=== PATIENT | male | born 1980 | race Caucasian/White ===

== ENCOUNTER 2021-11-12 09:50 | Emergency (ER) | payer OTHER ==
[2021-11-12 11:11] LABS: HEMOGLOBIN 8.9 gm/dl (14.0-17.5); RED BLOOD COUNT 2.99 M/UL (4.20-5.50); WHITE BLOOD COUNT 5.8 K/UL (4.5-11.0)
[2021-11-12 11:41] LABS: BUN/CREATININE RATIO 51 (0-10)
== END 2021-11-12 16:00 | disposition home or self-care (01) ==
LOC: ER1 09:50
PROVIDERS: Emergency Medicine
DX: N50.89 Other specified disorders of the male genital organs (principal); D64.9 Anemia, unspecified; E11.9 Type 2 diabetes mellitus without complications; F41.9 Anxiety disorder, unspecified; R60.1 Generalized edema; F43.10 Post-traumatic stress disorder, unspecified; F32.9 Major depressive disorder, single episode, unspecified; F17.200 Nicotine dependence, unspecified, uncomplicated; Z20.822 Contact with and (suspected) exposure to COVID-19
CPT/HCPCS: 51702; 71045; 76870; 80053; 81001; 82009; 82550; 82553; 83605; 83880; 84484; 85025; 87040; 93005; 96374; 96375; 99284; J0696; J1940; J2270; J2405; U0002

== ENCOUNTER → 2021-11-17 | Emergency (ER) | payer OTHER ==
[~2021-11-17] MED LIST: ALDACTONE50 MG PO; LASIX 40 MG TAB40 MG PO; [UNRECOGNIZED DRUG - OTHER]
[2021-11-17 01:42] LABS: HEMOGLOBIN 9.1 gm/dl (14.0-17.5); RED BLOOD COUNT 3.08 M/UL (4.20-5.50); WHITE BLOOD COUNT 5.6 K/UL (4.5-11.0)
[2021-11-17 02:05] LABS: BUN/CREATININE RATIO 40 (0-10)
[2021-11-17 21:56] LABS: CANDIDA ALBICANS Not Detected (Negative); CANDIDA KRUSEI Not Detected (Negative); CANDIDA TROPICALIS Not Detected (Negative); ESCHERICHIA COLI Not Detected (Negative); HAEMOPHILUS INFLUENZAE Not Detected (Negative); KLEBSIELLA OXYTOCA Not Detected (Negative); KLEBSIELLA PNEUMONIAE Not Detected (Negative); KPC-CARBAPENEM-RESISTANCE GENE Not Detected (Negative); PROTEUS Not Detected (Negative); PSEUDOMONAS AERUGINOSA Not Detected (Negative); SERRATIA MARCESANS Not Detected (Negative); STAPHYLOCOCCUS Not Detected (Negative); STAPHYLOCOCCUS AUREUS Not Detected (Negative); STREP AGALACTIAE (GROUP B) Not Detected (Negative); STREP PYOGENES (GROUP A) Not Detected (Negative); STREPTOCOCCUS Not Detected (Negative)
[2021-11-18 08:12] LABS: vanA/B (VANCOMYCIN RESIST GENE DETECTED (Negative)
== END | disposition home or self-care (01) ==
LOC: ER1 00:46
PROVIDERS: Family Medicine
DX: R60.1 Generalized edema (principal); E11.9 Type 2 diabetes mellitus without complications; F17.210 Nicotine dependence, cigarettes, uncomplicated; Z20.822 Contact with and (suspected) exposure to COVID-19
CPT/HCPCS: 71045; 80053; 82550; 82553; 82962; 83605; 84484; 85025; 85610; 87040; 87077; 87150; 87186; 99284; Q9967; U0002

== ENCOUNTER 2021-12-01 11:17 | Emergency (ER) | payer OTHER ==
[2021-12-01 12:04] LABS: RED BLOOD COUNT 4.25 M/UL (4.20-5.50); WHITE BLOOD COUNT 4.2 K/UL (4.5-11.0)
[2021-12-01 12:29] LABS: BUN/CREATININE RATIO 48 (0-10)
[2021-12-01] MEDS ORDERED: ONDANSETRON ODT4 MG SL (15:38)
[2021-12-01] MEDS ORDERED: PROTONIX40 MG PO (15:38)
== END 2021-12-01 16:36 | disposition home or self-care (01) ==
LOC: ER1 11:17
PROVIDERS: Physician Assistant
DX: E11.65 Type 2 diabetes mellitus with hyperglycemia (principal); R19.7 Diarrhea, unspecified; F17.200 Nicotine dependence, unspecified, uncomplicated; K21.9 Gastro-esophageal reflux disease without esophagitis; Z87.19 Personal history of other diseases of the digestive system; Z88.8 Allergy status to other drugs, medicaments and biological substances
CPT/HCPCS: 80053; 81001; 83690; 85025; 96374; 96375; 99284; C9113; J2270; J2405; J7030

== ENCOUNTER 2021-12-03 10:30 | Emergency (ER) | payer OTHER ==
[~2021-12-03 10:30] MED LIST changes: +ONDANSETRON ODT4 MG SL; +PROTONIX40 MG PO
[2021-12-03 11:29] LABS: HEMOGLOBIN 12.6 gm/dl (14.0-17.5); RED BLOOD COUNT 4.6 M/UL (4.20-5.50); WHITE BLOOD COUNT 4.6 K/UL (4.5-11.0)
[2021-12-03 11:52] LABS: BUN/CREATININE RATIO 48 (0-10)
[2021-12-03] MEDS ORDERED: FAMOTIDINE20 MG PO (17:15)
[2021-12-03] MEDS ORDERED: CARAFATE1 GM PO (17:15)
== END 2021-12-03 17:25 | disposition home or self-care (01) ==
LOC: ER1 10:30
PROVIDERS: Family Medicine
DX: K86.1 Other chronic pancreatitis (principal); K29.70 Gastritis, unspecified, without bleeding; K21.9 Gastro-esophageal reflux disease without esophagitis; K27.9 Peptic ulcer, site unspecified, unspecified as acute or chronic, without hemorrhage or perforation
CPT/HCPCS: 80053; 81001; 82550; 82553; 83690; 84484; 85025; 96374; 99284; J1885; Q9967

== ENCOUNTER 2021-12-07 08:43 | Emergency (ER) | payer OTHER ==
[~2021-12-07 08:43] MED LIST changes: +CARAFATE1 GM PO; +FAMOTIDINE20 MG PO
[2021-12-07 09:49] LABS: HEMOGLOBIN 12.1 gm/dl (14.0-17.5); RED BLOOD COUNT 4.28 M/UL (4.20-5.50); WHITE BLOOD COUNT 4.6 K/UL (4.5-11.0)
[2021-12-07 10:37] LABS: BUN/CREATININE RATIO 50 (0-10)
== END 2021-12-07 12:15 | disposition home or self-care (01) ==
LOC: ER1 08:43
PROVIDERS: Emergency Medicine
DX: R10.10 Upper abdominal pain, unspecified (principal); R10.811 Right upper quadrant abdominal tenderness; R10.816 Epigastric abdominal tenderness; E11.9 Type 2 diabetes mellitus without complications; I10 Essential (primary) hypertension; F17.200 Nicotine dependence, unspecified, uncomplicated; Z88.8 Allergy status to other drugs, medicaments and biological substances
CPT/HCPCS: 76705; 80053; 81001; 82550; 82553; 83690; 84484; 85025; 93005; 96374; 96375; 99284; C9113; J2270; J2405

== ENCOUNTER 2021-12-11 15:57 | Emergency (ER) | payer OTHER ==
[2021-12-11 16:59] LABS: HEMOGLOBIN 12.8 gm/dl (14.0-17.5); RED BLOOD COUNT 4.52 M/UL (4.20-5.50); WHITE BLOOD COUNT 5.5 K/UL (4.5-11.0)
[2021-12-11 17:17] LABS: BUN/CREATININE RATIO 37 (0-10)
== END 2021-12-11 21:37 | disposition home or self-care (01) ==
LOC: ER1 15:57
PROVIDERS: Nurse Practitioner
DX: R10.11 Right upper quadrant pain (principal); R10.817 Generalized abdominal tenderness; R11.10 Vomiting, unspecified; F17.210 Nicotine dependence, cigarettes, uncomplicated; E11.9 Type 2 diabetes mellitus without complications; Z79.4 Long term (current) use of insulin; Z88.8 Allergy status to other drugs, medicaments and biological substances
CPT/HCPCS: 80053; 81001; 82150; 82270; 82550; 82553; 83690; 84484; 85025; 96374; 99284; J2405; Q9967

== ENCOUNTER 2021-12-18 15:14 | Emergency (ER) | payer OTHER | END 2021-12-18 15:58 | disposition left against medical advice (07) | LOC: ER1 15:14 | DX: Z53.21 Procedure and treatment not carried out due to patient leaving prior to being seen by health care provider (principal) ==